=== PATIENT | female | born 1975 | race Caucasian/White ===

== ENCOUNTER 2020-07-16 14:45 | Outpatient (CLI) | payer MEDICAID ==
[2010-08-25 12:52] VITALS: BMI 35.0
== END 2020-07-16 16:00 | disposition home or self-care (01) ==
LOC: D.MAMMO 14:45
PROVIDERS: ATTEND Nurse Practitioner
DX: Z12.31 Encounter for screening mammogram for malignant neoplasm of breast (principal)

== ENCOUNTER → 2020-07-23 21:59 | Outpatient (CLI) | payer MEDICAID ==
[2010-08-25 12:52] VITALS: BMI 35.0
== END | disposition home or self-care (01) ==
LOC: D.MAMMO 11:00
PROVIDERS: ATTEND Nurse Practitioner
DX: N63.11 Unspecified lump in the right breast, upper outer quadrant (principal)